=== PATIENT | male | born 1945 | race Hispanic/Latino ===

== ENCOUNTER 2017-01-20 06:47 | Day surgery (SDC) | payer MEDICARE, BC ==
[2017-01-17 09:09] VITALS: BMI 27.5
[2017-01-20 07:28] LABS: ADD MANUAL DIFF? NO
[2017-01-20 07:33] LABS: BASO # 0.05 K/mm3 (0.0-2.0); BASO % 0.8 % (0.0-3.0); EOS # 0.2 (0.0-0.7); EOS % 2.7 % (1.5-5.0); GRAN # 4.11 (1.4-6.5); GRAN % 69.2 % (50.0-68.0); HEMATOCRIT 42.3 % (42.0-52.0); LYMPH # 1.1 (1.2-3.4); LYMPH % 18.9 % (22.0-35.0); MEAN CELL VOLUME 87.4 fL (80.0-105.0); MEAN CORPUSCULAR HGB CONC 35.5 g/dl (31.0-37.0); MEAN PLATELET VOLUME 9.8 fl (7.0-11.0); MONO # 0.5 (0.1-0.6); MONO % 8.4 % (1.0-6.0); PLATELET COUNT 196 10^3/uL (120.0-450.0); RED CELL DISTRIBUTION WIDTH 12.4 % (11.5-14.5); WHITE BLOOD COUNT 5.9 10^3/ul (4.5-11.0)
[2017-01-20] MEDS ORDERED: Lidocaine 2% Inj (20ml) ONE (07:34)
[2017-01-20] MEDS ORDERED: Iodixanol 320 MG/ML 200 ML BOTTLE IV ONE (07:35)
[2017-01-20 07:44] LABS: CALCIUM 9.6 mg/dL (8.4-10.5); POTASSIUM 3.9 mmol/L (3.6-5.0)
[2017-01-20 07:47] LABS: INR 1.03 (0.93-1.08); PARTIAL THROMBOPLASTIN TIME 32.8 Seconds (23.7-30.8)
[2017-01-20] MEDS ORDERED: Midazolam 2 MG/2 ML VIAL ONE ×2 (08:09→08:30)
[2017-01-20] MEDS ORDERED: Sodium Chloride 0.9% 1,000 ML IV SCH (10:00)
--- NOTE | 2017-01-20 12:50 | CP.PCM.HP ---
History of Present Illness - History of Present Illness History of Present Illness: HPI: Patient is a 71yo male with history of diabetes mellitus type 2, gout, hypothyroidism and CAD that presented as an outpatient for cardiac catherization. Patient reported that he had a nuclear stress test done last week that revealed an abnormality and was subsequently scheduled for a cardiac catherization. He was admitted for post-cath observation. Nuclear stress test done on 01/13/17 revealed LVEF of 61% with equivocal SPECT mycocardial perfusion study, mildly reversible anterior defect that is suspicious of ischemia, normal gated wall motion of the left ventricle. Patient had 2 SHEA placed in the LAD and one SHEA placed in the obtuse marginal branch. Patient also has a critical lesion in the RCA for which he is scheduled to undergo another cardiac catherization next week with Dr. Cespedes. He denies chest pain, palpitations, SOB, abdominal pain, nausea, vomiting, fever, chills, cough, focal weakness, numbness , tingling. 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 Porter Present on Admission - Present on Admission Any Indicators Present on Admission: No Past Patient History - CARDIAC Hx Pacemaker: No - NEUROLOGICAL Hx Paralysis: No - HEMATOLOGICAL/ONCOLOGICAL Hx Blood Transfusions: No - MUSCULOSKELETAL/RHEUMATOLOGICAL Hx Musculoskeletal Disorders: Yes (DUE TO PLANNED ANESTHESIA) - PSYCHIATRIC Hx Emotional Abuse: No Hx Physical Abuse: No Hx Substance Use: No - SURGICAL HISTORY Hx Surgeries: Yes - ANESTHESIA Hx Anesthesia Reactions: No Hx Malignant Hyperthermia: No Meds Allergies/Adverse Reactions: Allergies Allergy/AdvReac Type Severity Reaction Status Date / Time No Known Allergies Allergy Verified 05/06/13 13:37 Physical Exam - Constitutional Appears: Well, Non-toxic, No Acute Distress - Head Exam Head Exam: ATRAUMATIC, NORMAL INSPECTION, NORMOCEPHALIC - Eye Exam Eye Exam: EOMI, PERRL - ENT Exam ENT Exam: Mucous Membranes Moist - Neck Exam Neck exam: Positive for: Normal Inspection. Negative for: Tenderness - Respiratory Exam Respiratory Exam: Clear to Auscultation Bilateral. absent: Rales, Rhonchi, Wheezes - Cardiovascular Exam Cardiovascular Exam: RRR, +S1, +S2. absent: Gallop, Rubs - GI/Abdominal Exam GI & Abdominal Exam: Soft. absent: Distended, Firm, Guarding, Rebound, Tenderness - Neurological Exam Neurological exam: Alert, Oriented x3 - Psychiatric Exam Psychiatric exam: Normal Affect, Normal Mood - Skin Skin Exam: Dry, Intact, Normal Color, Warm Results - Vital Signs Recent Vital Signs: Last Vital Signs Temp 98 F 01/20/17 12:00 Pulse 55 L 01/20/17 12:20 Resp 20 01/20/17 12:20 BP 117/79 01/20/17 12:20 Pulse Ox 97 01/20/17 07:25 - Labs Result Diagrams: 01/20/17 07:00 01/20/17 07:00 Labs: Laboratory Results - last 24 hr 01/20/17 01/20/17 01/20/17 07:00 07:00 07:00 WBC 5.9 RBC 4.84 Hgb 15.0 Hct 42.3 MCV 87.4 MCH 31.0 MCHC 35.5 RDW 12.4 Plt Count 196 MPV 9.8 Gran % 69.2 H Lymph % (Auto) 18.9 L [place] % (Auto) 8.4 H Eos % (Auto) 2.7 Baso % (Auto) 0.8 Gran # 4.11 Lymph # 1.1 L [place] # 0.5 Eos # 0.2 Baso # 0.05 PT 11.1 INR 1.03 APTT 32.8 H Sodium 140 Potassium 3.9 Chloride 104 Carbon Dioxide 26 Anion Gap 14 BUN 23 H Creatinine 1.5 H Est GFR ( Amer) 56 Est GFR (Non-Af Amer) 46 POC Glucose (mg/dL) Random Glucose 154 H Calcium 9.6 Blood Type Blood Type Confirm Antibody Screen BBK History Checked 01/20/17 01/20/17 01/20/17 07:00 07:20 10:43 WBC RBC Hgb Hct MCV MCH MCHC RDW Plt Count MPV Gran % Lymph % (Auto) [place] % (Auto) Eos % (Auto) Baso % (Auto) Gran # Lymph # [place] # Eos # Baso # PT INR APTT Sodium Potassium Chloride Carbon Dioxide Anion Gap BUN Creatinine Est GFR ( Amer) Est GFR (Non-Af Amer) POC Glucose (mg/dL) 131 H Random Glucose Calcium Blood Type B POSITIVE Blood Type Confirm B POSITIVE Antibody Screen Negative BBK History Checked No verified bt Assessment & Plan - Assessment and Plan (Free Text) Plan: 71yo male with history of CAD, DM2, hypothyroidism, gout s/p cardiac catherization admitted for post-cath observation 1. CAD -Patient is s/p 3 SHEA placement and is doing well post procedure -Continue with ASA, plavix, lipitor -Cardiology following - Dr. Cespedes 2. Acute kidney injury secondary to contrast nephropathy -Continue with IVF hydration @100cc/hr -Will continue to follow renal function closely 3. Diabetes type 2 -Fingersticks ACHS -Low dose ISS -Consistent carb diet 4. Hypothyroidism -Continue with synthroid Patient seen and case discussed with attending, Dr. Porter - Date & Time Date: 01/20/17 Time: 13:02
--- NOTE | 2017-01-20 13:20 | CARD ---
APPROVED REPORT EKG Measurement Heart [id number] [place] 176P14 [id number] <Conclusion> Sinus bradycardia Inferior infarct, age undetermined Abnormal ECG
--- NOTE | 2017-01-20 15:08 | CARDCATH ---
PROCEDURE DATE: 01/20/2017 HISTORY: The patient is a 71-year-old male who presents with an abnormal stress test. His cardiac r isk factors include hypertension, diabetes mellitus and hypercholesterolemia and a strong family hist ory for CAD. Because of his chest pain and abnormal stress test, cardiac catheterization was recommended. PROCEDURE: Left heart catheterization with coronary angiography, left ventriculogram, and PTCA and s tent of an LAD in circumflex artery. The right femoral artery was cannulated with a 6-[place] sheath. There were no complications. The findings on catheterization revealed a left ventricle that contracted normally. Estimated ejecti on fraction is 60%. The left main artery was unremarkable. The LAD in the proximal portion revealed an 80% stenoses that was a long lesion. The diagonal vessels were free of significant disease. The circumflex artery in the AV groove branch was unremarkable. The obtuse marginal branch which is a tortuous vessel was subtotally occluded and was a small vessel. The right coronary artery is selectively cannulized and found to be a dominant vessel. The RCA revea led intimal irregularities with 80% stenosis in the distal portion prior to the takeoff of the PDA. In addition, there is a 90% stenosis in the mid portion of the posterolateral branch. The patient was started on intravenous Angiomax. Under fluoroscopic guide, an EBU guider was placed in the ostium of the left main artery. An 0.014 A TW wire was placed in the LAD. A 3.0 mm x 15 mm drug-eluting stent was placed and deployed at 14 atmospheres of pressure. This was followed by another 3.0 stent just distal to the first stent. Post-dilatation was performed with a 3 .5 noncompliant balloon. The wire was then brought back and an [id number] wire was then placed across the subtotal occlu ded tortuous obtuse marginal branch. A 2.0 balloon was utilized to predilate the lesion. This was f ollowed by implantation of a 2.25 mm x 14 mm drug-eluting stent. Repeat coronary angiography reveale d an excellent result in the LAD as well as the obtuse marginal branch of the circumflex artery with no residual stenosis and HESHAM 3 flow. The patient tolerated the procedure well. Angio-Seal was used to close the femoral artery site. In summary, the procedure revealed triple vessel CAD. Successful percutaneous transluminal coronary angioplasty and stent of the LAD as well as the obtuse marginal branch with drug-eluting stents. Normal left ventricular function. Given these findings, the patient will need to remain on aspirin indefinitely and Plavix for at least 1 year and undergo a strict cardiac risk reduction program. We will bring the patient back in 1 week for PTCA and stent of 2 lesions in the RCA. Steve Cespedes MD cc: [id number] TT: 01/20/2017 15:07:20 rn
[2017-01-20] MEDS: Insulin Reg-LOW-Coverage SC SCH (17:59)
[2017-01-21] MEDS: Insulin Reg-LOW-Coverage SC SCH ×3 (02:58→12:32)
[2017-01-21 06:55] VITALS: O2SAT 96
[2017-01-21] MEDS ORDERED: Levothyroxine 25 MCG TAB PO SCH (07:30)
[2017-01-21 08:05] LABS: ADD MANUAL DIFF? NO
[2017-01-21 08:14] LABS: BASO # 0.02 K/mm3 (0.0-2.0); BASO % 0.3 % (0.0-3.0); EOS # 0.1 (0.0-0.7); EOS % 2.1 % (1.5-5.0); GRAN # 4.37 (1.4-6.5); GRAN % 72.1 % (50.0-68.0); HEMATOCRIT 41.9 % (42.0-52.0); LYMPH # 1.1 (1.2-3.4); LYMPH % 17.3 % (22.0-35.0); MEAN CELL VOLUME 88.2 fL (80.0-105.0); MEAN CORPUSCULAR HEMOGLOBIN 31.2 pg (25.0-35.0); MEAN CORPUSCULAR HGB CONC 35.3 g/dl (31.0-37.0); MEAN PLATELET VOLUME 9.6 fl (7.0-11.0); MONO # 0.5 (0.1-0.6); MONO % 8.2 % (1.0-6.0); PLATELET COUNT 174 10^3/uL (120.0-450.0); RED CELL DISTRIBUTION WIDTH 12.3 % (11.5-14.5); WHITE BLOOD COUNT 6.1 10^3/ul (4.5-11.0)
[2017-01-21 08:23] LABS: BLOOD UREA NITROGEN 22 mg/dL (7-21); CALCIUM 9.5 mg/dL (8.4-10.5); CARBON DIOXIDE 29 mmol/L (21-33); CHLORIDE 103 mmol/L (95-110); GFR AFRICAN-AMERICAN > 60; GLUCOSE,RANDOM 137 mg/dL (70-110); POTASSIUM 4.1 mmol/L (3.6-5.0); SODIUM 140 mmol/L (132-148)
--- NOTE | 2017-01-21 10:05 | CP.PCM.DIS ---
Provider - Provider Attending physician: Steve Cespedes MD Primary care physician: Juan Luis Porter MD Consults: Cardiology - Dr. Cespedes Time Spent in preparation of Discharge (in minutes): 30 Hospital Course - Lab Results Lab Results: Most Recent Lab Values WBC 6.1 10^3/ul (4.5-11.0) 01/21/17 07:50 RBC 4.75 10^6/uL (3.5-6.1) 01/21/17 07:50 Hgb 14.8 gm/dL (14.0-18.0) 01/21/17 07:50 Hct 41.9 % (42.0-52.0) L 01/21/17 07:50 MCV 88.2 fL (80.0-105.0) 01/21/17 07:50 MCH 31.2 pg (25.0-35.0) 01/21/17 07:50 MCHC 35.3 g/dl (31.0-37.0) 01/21/17 07:50 RDW 12.3 % (11.5-14.5) 01/21/17 07:50 Plt Count 174 10^3/uL (120.0-450.0) 01/21/17 07:50 MPV 9.6 fl (7.0-11.0) 01/21/17 07:50 Gran % 72.1 % (50.0-68.0) H 01/21/17 07:50 Lymph % (Auto) 17.3 % (22.0-35.0) L 01/21/17 07:50 [place] % (Auto) 8.2 % (1.0-6.0) H 01/21/17 07:50 Eos % (Auto) 2.1 % (1.5-5.0) 01/21/17 07:50 Baso % (Auto) 0.3 % (0.0-3.0) 01/21/17 07:50 Gran # 4.37 (1.4-6.5) 01/21/17 07:50 Lymph # 1.1 (1.2-3.4) L 01/21/17 07:50 [place] # 0.5 (0.1-0.6) 01/21/17 07:50 Eos # 0.1 (0.0-0.7) 01/21/17 07:50 Baso # 0.02 K/mm3 (0.0-2.0) 01/21/17 07:50 PT 11.1 Seconds (9.9-11.8) 01/20/17 07:00 INR 1.03 (0.93-1.08) 01/20/17 07:00 APTT 32.8 Seconds (23.7-30.8) H 01/20/17 07:00 Plt P2Y12 React Units 144 PRU (194-418) L 01/21/17 07:50 Sodium 140 mmol/L (132-148) 01/21/17 07:50 Potassium 4.1 mmol/L (3.6-5.0) 01/21/17 07:50 Chloride 103 mmol/L (95-110) 01/21/17 07:50 Carbon Dioxide 29 mmol/L (21-33) 01/21/17 07:50 Anion Gap 12 (10-20) 01/21/17 07:50 BUN 22 mg/dL (7-21) H 01/21/17 07:50 Creatinine 1.4 mg/dL (0.5-1.4) 01/21/17 07:50 Est GFR ( Amer) > 60 01/21/17 07:50 Est GFR (Non-Af Amer) 50 01/21/17 07:50 POC Glucose (mg/dL) 145 mg/dL (65-110) H 01/21/17 07:48 Random Glucose 137 mg/dL (70-110) H 01/21/17 07:50 Calcium 9.5 mg/dL (8.4-10.5) 01/21/17 07:50 Blood Type B POSITIVE 01/20/17 07:00 Blood Type Confirm B POSITIVE 01/20/17 07:20 Antibody Screen Negative 01/20/17 07:00 BBK History Checked No verified bt 01/20/17 07:00 - Date & Time of H&P Date of H&P: 01/20/17 Discharge Exam - Head Exam Head Exam: ATRAUMATIC, NORMAL INSPECTION, NORMOCEPHALIC - Eye Exam Eye Exam: EOMI, PERRL - ENT Exam ENT Exam: Mucous Membranes Moist - Respiratory Exam Respiratory Exam: Clear to PA & Lateral. absent: Rales, Rhonchi, Wheezes - Cardiovascular Exam Cardiovascular Exam: RRR, +S1, +S2. absent: Gallop, Rubs - GI/Abdominal Exam GI & Abdominal Exam: Normal Bowel Sounds, Soft. absent: Distended, Firm, Guarding, Rigid, Tenderness - Extremities Exam Extremities exam: normal inspection - Neurological Exam Neurological exam: Alert, CN II-XII Intact, Oriented x3 - Psychiatric Exam Psychiatric exam: Normal Affect, Normal Mood - Skin Skin Exam: Dry, Intact, Normal Color, Warm Discharge Plan - Discharge Medications Prescriptions: Atorvastatin [Lipitor] 40 mg PO DIN #30 tab Clopidogrel [Plavix] 75 mg PO DAILY #30 tab - Follow Up Plan Condition: GOOD Disposition: HOME/ ROUTINE Additional Instructions: 1. Follow up with your primary doctor, Dr. Porter within 1-2 weeks. 2. Follow up with your duplication specialist, Dr. Cespedes within 1-2 weeks. 3. Fill any medications prescribed to you and take as directed. 4. Discontinue taking your jentadueto medication for [address] Porter office to obtain trujenta medication for 2 weeks. 5. Proceed to the emergency room should your condition worsen. Referrals: Juan Luis Porter MD [Primary Care Provider] -
[2017-01-21 11:50] VITALS: BP 120/79; RESP 20; TEMP 98.6
--- NOTE | 2017-01-21 14:06 | PN ---
DATE: 01/21/2017 The patient is chest pain free. PHYSICAL EXAMINATION: VITAL SIGNS: Stable. NECK: Negative JVD. LUNGS: Without rales. HEART: Reveals S1, S2. EXTREMITIES: Without edema. LABORATORIES: Reviewed and found to be unremarkable. IMPRESSION: 1. Status post percutaneous transluminal coronary angioplasty and stent of the left anterior descend ing and circumflex artery with drug-eluting stents. 2. Three-vessel coronary artery disease. 3. Hypercholesterolemia. 4. Angina. Given these findings, the patient is stable for discharge. His renal function has improved with aggr essive hydration. The patient is scheduled for discharge today. We will bring him back in 1 week for PTCA and stent of the RCA. Steve Cespedes MD cc: [id number] TT: 01/21/2017 14:06:07 Confirmation # [id number] Dictation # [id number] tn
[2017-01-21 15:13] VITALS: PULSE 74
--- NOTE | 2017-01-21 22:34 | CARD ---
APPROVED REPORT EKG Measurement Heart [id number] [place] 170P9 [id number] <Conclusion> Normal sinus rhythm with sinus arrhythmia Inferior infarct, age undetermined Abnormal ECG
== END 2017-01-21 16:21 | disposition home or self-care (01) ==
LOC: CATH 06:47 → 2RSO 10:05 → CATH 01-21 16:21
PROVIDERS: ATTEND Internal Medicine Cardiovascular Disease
DX: I25.10 Atherosclerotic heart disease of native coronary artery without angina pectoris (principal); I10 Essential (primary) hypertension; E78.00 Pure hypercholesterolemia, unspecified; E11.9 Type 2 diabetes mellitus without complications; E03.9 Hypothyroidism, unspecified; M10.9 Gout, unspecified; N17.8 Other acute kidney failure; N14.1 Nephropathy induced by other drugs, medicaments and biological substances; T50.8X5A Adverse effect of diagnostic agents, initial encounter; Z82.49 Family history of ischemic heart disease and other diseases of the circulatory system
CPT/HCPCS: 36415 ×2; 80048 ×2; 82139; 82948 ×2; 85025 ×2; 85610; 85730; 86850; 86900; 93005 ×2; 93458; 99152; 99153; C1725 ×2; C1760; C1769 ×3; C1874 ×3; C1887; C2629; C9600; C9601; J0583; J1644; J2250; J3010; J7030; J7040

== ENCOUNTER 2017-01-30 06:24 | Day surgery (SDC) | payer MEDICARE, BC ==
[2017-01-28 08:01] VITALS: BMI 26.4
[2017-01-30] MEDS ORDERED: Lidocaine 2% Inj (20ml) ONE (06:37)
[2017-01-30] MEDS ORDERED: Iohexol 350mgl/ml 50 ML ONE (06:37)
[2017-01-30] MEDS ORDERED: Phenylephrine 10 mg/ml Inj ONE (06:37)
[2017-01-30] MEDS ORDERED: Nitroglycerin 50mg in D5W 50 MG/250 ML BOTTLE IV ONE (06:38)
[2017-01-30] MEDS ORDERED: Iodixanol 320 MG/ML 100 ML BOTTLE IV ONE (06:38)
[2017-01-30] MEDS ORDERED: Iodixanol 320 MG/ML 200 ML BOTTLE IV ONE (06:38)
[2017-01-30 06:49] LABS: ADD MANUAL DIFF? NO
[2017-01-30 06:55] LABS: BASO # 0.07 K/mm3 (0.0-2.0); BASO % 1.4 % (0.0-3.0); EOS # 0.2 (0.0-0.7); EOS % 4.5 % (1.5-5.0); GRAN # 3.37 (1.4-6.5); GRAN % 65.9 % (50.0-68.0); HEMATOCRIT 38.9 % (42.0-52.0); LYMPH % 20.2 % (22.0-35.0); MEAN CORPUSCULAR HEMOGLOBIN 31.1 pg (25.0-35.0); MEAN CORPUSCULAR HGB CONC 35.7 g/dl (31.0-37.0); MEAN PLATELET VOLUME 9.6 fl (7.0-11.0); MONO # 0.4 (0.1-0.6); PLATELET COUNT 208 10^3/uL (120.0-450.0); RED CELL DISTRIBUTION WIDTH 12.3 % (11.5-14.5); WHITE BLOOD COUNT 5.1 10^3/ul (4.5-11.0)
[2017-01-30 07:02] LABS: INR 1.03 (0.93-1.08); PARTIAL THROMBOPLASTIN TIME 34.1 Seconds (23.7-30.8)
[2017-01-30 07:08] LABS: BLOOD UREA NITROGEN 24 mg/dL (7-21); CALCIUM 9.3 mg/dL (8.4-10.5); CARBON DIOXIDE 25 mmol/L (21-33); CHLORIDE 107 mmol/L (98-107); CHOLESTEROL 55 mg/dL (130-200); GFR AFRICAN-AMERICAN > 60; GLUCOSE,RANDOM 122 mg/dL (70-110); POTASSIUM 3.9 mmol/L (3.6-5.0); SODIUM 141 mmol/L (132-148)
[2017-01-30] MEDS ORDERED: Midazolam 2 MG/2 ML VIAL ONE ×2 (07:21→08:08)
[2017-01-30] MEDS ORDERED: Sodium Chloride 0.9% 1,000 ML IV SCH (09:45)
--- NOTE | 2017-01-30 10:25 | CARDCATH ---
PROCEDURE DATE: 01/30/2017 HISTORY OF PRESENT ILLNESS: The patient is a 71-year-old male with documented multivessel CAD who pr esents for PTCA and stent of the RCA. PROCEDURE: Left heart catheterization with coronary arteriography and PTCA and stent of an RCA. The left femoral artery was cannulated with a 6-[place] sheath. There were no complications. The findings on catheterization revealed a right dominant circulation. The RCA was diffusely diseased throughout its course with a 70%-80% stenosis at the crux of the RCA a s well as a 90% stenosis in the second posterolateral branch with a long critical lesion in the first posterolateral branch. The left main artery was unremarkable. The stents in the LAD and circumflex artery that were placed last week were patent. The patient was started on intravenous Angiomax. Under fluoroscopic guide, the guiding catheter was placed in the ostium of the RCA. An 0.014 ATW wir e was placed in the RCA past the multiple critical lesions. A 2.0 balloon was utilized to predilate the lesion. A 2.25 mm x 12 mm drug-eluting stent was placed and deployed at 12 atmospheres of pressure in the pos terolateral branch. A 2.75 mm x 8 mm drug-eluting stent was placed and deployed at 14 atmospheres of pressure in the crux of the RCA. Repeat coronary angiography revealed an excellent result with no residual stenosis and HESHAM 3 flow. Angio-Seal was used to close the femoral artery site. SUMMARY: 1. The procedure was successful percutaneous transluminal coronary angioplasty and stent of multiple lesions in the right coronary artery. 2. Coronary arteriography revealed patent stents in the circumflex artery and left anterior descendi ng. 3. Triple vessel disease noted. 4. Preserved left ventricular function. Given these findings, the patient will need to remain on aspirin indefinitely and Effient for at leas t 1 year. The patient was found to be ALLERGIC TO PLAVIX. Steve Cespedes MD cc: [phone] TT: 01/30/2017 10:25:24 en
[2017-01-30 10:47] LABS: ADD MANUAL DIFF? NO
[2017-01-30 10:55] LABS: BASO # 0.06 K/mm3 (0.0-2.0); BASO % 1.3 % (0.0-3.0); EOS # 0.2 (0.0-0.7); EOS % 3.9 % (1.5-5.0); GRAN # 3.17 (1.4-6.5); GRAN % 69.5 % (50.0-68.0); HEMATOCRIT 37.1 % (42.0-52.0); LYMPH # 0.8 (1.2-3.4); LYMPH % 16.7 % (22.0-35.0); MEAN CELL VOLUME 87.7 fL (80.0-105.0); MEAN CORPUSCULAR HGB CONC 35.3 g/dl (31.0-37.0); MEAN PLATELET VOLUME 9.6 fl (7.0-11.0); MONO # 0.4 (0.1-0.6); MONO % 8.6 % (1.0-6.0); PLATELET COUNT 179 10^3/uL (120.0-450.0); RED CELL DISTRIBUTION WIDTH 12.4 % (11.5-14.5); WHITE BLOOD COUNT 4.6 10^3/ul (4.5-11.0)
--- NOTE | 2017-01-30 14:50 | CP.PCM.HP ---
History of Present Illness - History of Present Illness History of Present Illness: Internal Medicine H&P for Dr. Porter/Dr. Sewell service CC: S/p cardiac cath HPI: This is a 71 yo M with PMH of DM-II, gout, hypothyroidism, and CAD s/p stenting 1 week prior who presents s/p scheduled outpatient cardiac cath for overnight observation. Patient is s/p stenting of the LAD and circumflex arteries last week, and is now s/p 2x drug-eluting stents in the RCA. At time of exam on the floors, patient is resting comfortably in bed, no acute complaints. Some tenderness at the site of canulation, but denies chest pain, shortness of breath, nausea/emesis. PMH: DM2, Gout, Hypothyroidism, CAD PSH: Vasectomy (>30yrs ago), cardiac cath s/p SHEA placement FHx: Brain hemorrhage (Father) SHx: Denies tobacco/alcohol/illicits PMD: Dr. Porter Present on Admission - Present on Admission Any Indicators Present on Admission: No History of DVT/PE: No History of Uncontrolled Diabetes: No Review of Systems - Constitutional Constitutional: absent: Chills, Fever, Weakness - EENT Eyes: absent: Blurred Vision, Change in Vision, Loss of Vision Ears: absent: Disequilibrium, Dizziness Nose/Mouth/Throat: absent: Sore Throat, Neck Pain - Cardiovascular Cardiovascular: absent: Chest Pain, Dyspnea, Lightheadedness, Syncope - Respiratory Respiratory: absent: Cough, Dyspnea, Hemoptysis - Gastrointestinal Gastrointestinal: absent: Abdominal Pain, Constipation, Diarrhea, Nausea, Vomiting - Genitourinary Genitourinary: absent: Difficulty Urinating, Dysuria, Flank Pain, Hematuria - Musculoskeletal Musculoskeletal: absent: Neck Pain, Numbness - Integumentary Integumentary: absent: Bleeding Lesions, Pruritus, Rash - Neurological Neurological: absent: Numbness, Focal Weakness, Loss of Vision, Syncope, Weakness, Other Visual Disturbances - Psychiatric Psychiatric: absent: Anxiety - Endocrine Endocrine: absent: Fatigue, Palpitations Past Patient History - CARDIAC Hx Pacemaker: No - NEUROLOGICAL Hx Paralysis: No - HEMATOLOGICAL/ONCOLOGICAL Hx Blood Transfusions: No - MUSCULOSKELETAL/RHEUMATOLOGICAL Hx Musculoskeletal Disorders: Yes - PSYCHIATRIC Hx Emotional Abuse: No Hx Physical Abuse: No Hx Substance Use: No - SURGICAL HISTORY Hx Surgeries: Yes - ANESTHESIA Hx Anesthesia Reactions: No Hx Malignant Hyperthermia: No Meds Allergies/Adverse Reactions: Allergies Allergy/AdvReac Type Severity Reaction Status Date / Time clopidogrel [From Plavix] Allergy RASH Verified 01/30/17 07:55 Physical Exam - Constitutional Appears: Non-toxic, No Acute Distress - Head Exam Head Exam: ATRAUMATIC, NORMAL INSPECTION, NORMOCEPHALIC - Eye Exam Eye Exam: EOMI, Normal appearance. absent: Conjunctival injection, Scleral icterus Pupil Exam: absent: Irregular, Unequal - ENT Exam ENT Exam: Mucous Membranes Moist - Neck Exam Neck exam: Positive for: Full Rom, Normal Inspection - Respiratory Exam Respiratory Exam: Clear to Auscultation Bilateral, NORMAL BREATHING PATTERN. absent: Accessory Muscle Use, Chest Wall Tenderness, Decreased Breath Sounds, Rales, Rhonchi, Wheezes - Cardiovascular Exam Cardiovascular Exam: REGULAR RHYTHM, RRR, +S1, +S2. absent: Bradycardia, Tachycardia - GI/Abdominal Exam GI & Abdominal Exam: Normal Bowel Sounds, Soft. absent: Distended, Firm, Rigid , Tenderness - Extremities Exam Extremities exam: Positive for: normal inspection, pedal pulses present (+2 dosalis pedis and posterior tibials bilaterally, brisk L popliteal pulse). Negative for: calf tenderness, pedal edema, tenderness Additional comments: mild tenderness at site of L groin (Cath access site), no active bleeding or oozing through pressure bandage, no surrounding tenderness/erythema/edema - Neurological Exam Neurological exam: Alert, Oriented x3 - Psychiatric Exam Psychiatric exam: Normal Affect, Normal Mood - Skin Skin Exam: Dry, Intact (except for canulation site as described in extremities exam), Normal Color, Warm Results - Vital Signs Recent Vital Signs: Last Vital Signs Temp 97.3 F L 01/30/17 12:02 Pulse 55 L 01/30/17 13:14 Resp 20 01/30/17 13:14 BP 122/70 01/30/17 13:14 Pulse Ox 99 01/30/17 06:45 - Labs Result Diagrams: 01/30/17 10:45 01/30/17 06:45 Labs: Laboratory Results - last 24 hr 01/30/17 01/30/17 01/30/17 06:45 06:45 06:45 WBC 5.1 RBC 4.47 Hgb 13.9 L Hct 38.9 L MCV 87.0 MCH 31.1 MCHC 35.7 RDW 12.3 Plt Count 208 MPV 9.6 Gran % 65.9 Lymph % (Auto) 20.2 L [place] % (Auto) 8.0 H Eos % (Auto) 4.5 Baso % (Auto) 1.4 Gran # 3.37 Lymph # 1.0 L [place] # 0.4 Eos # 0.2 Baso # 0.07 PT 11.1 INR 1.03 APTT 34.1 H Sodium 141 Potassium 3.9 Chloride 107 Carbon Dioxide 25 Anion Gap 13 BUN 24 H Creatinine 1.4 Est GFR ( Amer) > 60 Est GFR (Non-Af Amer) 50 Random Glucose 122 H Calcium 9.3 Triglycerides 85 Cholesterol 55 L LDL Cholesterol Direct < 30 HDL Cholesterol 27 L Blood Type Antibody Screen BBK History Checked 01/30/17 01/30/17 06:45 10:45 WBC 4.6 RBC 4.23 Hgb 13.1 L Hct 37.1 L MCV 87.7 MCH 31.0 MCHC 35.3 RDW 12.4 Plt Count 179 MPV 9.6 Gran % 69.5 H Lymph % (Auto) 16.7 L [place] % (Auto) 8.6 H Eos % (Auto) 3.9 Baso % (Auto) 1.3 Gran # 3.17 Lymph # 0.8 L [place] # 0.4 Eos # 0.2 Baso # 0.06 PT INR APTT Sodium Potassium Chloride Carbon Dioxide Anion Gap BUN Creatinine Est GFR ( Amer) Est GFR (Non-Af Amer) Random Glucose Calcium Triglycerides Cholesterol LDL Cholesterol Direct HDL Cholesterol Blood Type B POSITIVE Antibody Screen Negative BBK History Checked Patient has bt Assessment & Plan - Assessment and Plan (Free Text) Assessment: This is a 71 yo M with PMH of CAD s/p stenting, DM-II, hypothyroidism , and gout who presents s/p cardiac catherization for stenting of RCA, now here for post-cath obs. Plan: 1) CAD s/p stenting -S/p stenting of LAD and circumflex arteries 1 week prior, now s/p 2x stents of the RCA -Continue with ASA, effient, lipitor -Cardiology (Dr. Cespedes) following, appreciate all recs -f/u EKG in AM -f/u AM labs -Pulse checks as per cardio 2) Elevated Cr s/p contrast dye exposure -Cr 1.4, was 1.4 on discharge 1 week prior -IVF hydration @100cc/hr -f/u Cr on AM labs tomorrow AM 3) DM-II -Low-ISS + Fingersticks ACHS -Consistent carb diet -Hold home linagliptin 4) Hypothyroidism -Continue with synthroid Dispo: Tele s/p cardiac cath, likely d/c tomorrow FEN: Heart-healthy consistent carb Access: Peripheral IV Consults: Cardio Ppx: Protonix for GI, SCDs for DVT Patient seen, reviewed, and discussed with attending, Dr. Porter. - Date & Time Date: 01/30/17 Time: 09:45 Decision To Admit - Pt Status Changed To: Hospital Disposition Of: Extended Recovery/Post Procedure - . Bed Request Type: Telemetry
[2017-01-30] MEDS: Sodium Chloride 0.9% 1,000 ML IV SCH (16:47)
--- NOTE | 2017-01-30 23:42 | CARD ---
APPROVED REPORT EKG Measurement Heart [id number] [place] 174P22 [id number] <Conclusion> Marked sinus bradycardia Inferior infarct, age undetermined Abnormal ECG
[2017-01-31] MEDS: Sodium Chloride 0.9% 1,000 ML IV SCH (02:42)
[2017-01-31 06:10] VITALS: PULSE 58; O2SAT 98
[2017-01-31 07:27] LABS: ADD MANUAL DIFF? NO
[2017-01-31 07:29] LABS: BASO # 0.03 K/mm3 (0.0-2.0); BASO % 0.6 % (0.0-3.0); EOS # 0.2 (0.0-0.7); EOS % 3.4 % (1.5-5.0); GRAN # 4.03 (1.4-6.5); GRAN % 75.4 % (50.0-68.0); LYMPH # 0.8 (1.2-3.4); LYMPH % 14.8 % (22.0-35.0); MEAN CELL VOLUME 87.6 fL (80.0-105.0); MEAN CORPUSCULAR HEMOGLOBIN 31.1 pg (25.0-35.0); MEAN CORPUSCULAR HGB CONC 35.5 g/dl (31.0-37.0); MEAN PLATELET VOLUME 9.9 fl (7.0-11.0); MONO # 0.3 (0.1-0.6); MONO % 5.8 % (1.0-6.0); PLATELET COUNT 179 10^3/uL (120.0-450.0); RED CELL DISTRIBUTION WIDTH 12.3 % (11.5-14.5); WHITE BLOOD COUNT 5.3 10^3/ul (4.5-11.0)
[2017-01-31] MEDS ORDERED: Levothyroxine 25 MCG TAB PO SCH ×2 (07:30→10:00)
[2017-01-31 07:43] LABS: BLOOD UREA NITROGEN 20 mg/dL (7-21); CARBON DIOXIDE 25 mmol/L (21-33); CHLORIDE 109 mmol/L (95-110); GFR AFRICAN-AMERICAN > 60; GLUCOSE,RANDOM 112 mg/dL (70-110); MAGNESIUM 1.8 mg/dL (1.7-2.2); PHOSPHOROUS 3.3 mg/dL (2.5-4.5); POTASSIUM 3.9 mmol/L (3.6-5.0); SODIUM 141 mmol/L (132-148)
--- NOTE | 2017-01-31 10:26 | PN ---
DATE: 01/30/2017 The patient is ambulating without symptoms. PHYSICAL EXAMINATION: VITAL SIGNS: Blood pressure is 115/67, heart rate is in the 60s. NECK: Negative JVD. LUNGS: Without rales. HEART: Reveals S1, S2. EXTREMITIES: Without edema. LABORATORIES: Creatinine is 1.4, potassium is 3.9. IMPRESSION: 1. Stable post percutaneous transluminal coronary angioplasty and stent of multivessels. 2. Coronary artery disease. 3. Hypercholesterolemia. 4. ALLERGY TO PLAVIX. PLAN: Given these findings, the patient can be discharged. Followup instructions were given to the patient. The patient will be on Effient for at least 1 year. Steve Cespedes MD cc: [id number] TT: 01/31/2017 10:25:49 Confirmation # [id number] Dictation # [id number] [place]
[2017-01-31] MEDS ORDERED: DiphenhydrAMINE 50 mg/ml Inj IVP STA (10:36)
[2017-01-31] MEDS ORDERED: DiphenhydrAMINE 50 mg/ml Inj ONE (11:12)
[2017-01-31 11:55] VITALS: BP 126/77; RESP 18; TEMP 98.3
--- NOTE | 2017-01-31 17:54 | CP.PCM.DIS ---
Provider - Provider Date of Admission: 01/30/17 Attending physician: Juan Luis Porter MD Primary care physician: Juan Luis Porter MD Consults: Cardio: Coy Time Spent in preparation of Discharge (in minutes): 35 Diagnosis - Discharge Diagnosis (1) S/P cardiac cath Status: Acute Priority: High (2) S/P coronary artery stent placement Status: Acute Priority: High (3) Hyperlipemia Status: Chronic Priority: Medium (4) Diabetes Status: Chronic Priority: Medium (5) Hypothyroid Status: Chronic Priority: Medium Hospital Course - Lab Results Lab Results: Most Recent Lab Values WBC 5.3 10^3/ul (4.5-11.0) 01/31/17 05:30 RBC 4.34 10^6/uL (3.5-6.1) 01/31/17 05:30 Hgb 13.5 gm/dL (14.0-18.0) L 01/31/17 05:30 Hct 38.0 % (42.0-52.0) L 01/31/17 05:30 MCV 87.6 fL (80.0-105.0) 01/31/17 05:30 MCH 31.1 pg (25.0-35.0) 01/31/17 05:30 MCHC 35.5 g/dl (31.0-37.0) 01/31/17 05:30 RDW 12.3 % (11.5-14.5) 01/31/17 05:30 Plt Count 179 10^3/uL (120.0-450.0) 01/31/17 05:30 MPV 9.9 fl (7.0-11.0) 01/31/17 05:30 Gran % 75.4 % (50.0-68.0) H 01/31/17 05:30 Lymph % (Auto) 14.8 % (22.0-35.0) L 01/31/17 05:30 Guthrie % (Auto) 5.8 % (1.0-6.0) 01/31/17 05:30 Eos % (Auto) 3.4 % (1.5-5.0) 01/31/17 05:30 Baso % (Auto) 0.6 % (0.0-3.0) 01/31/17 05:30 Gran # 4.03 (1.4-6.5) 01/31/17 05:30 Lymph # 0.8 (1.2-3.4) L 01/31/17 05:30 Guthrie # 0.3 (0.1-0.6) 01/31/17 05:30 Eos # 0.2 (0.0-0.7) 01/31/17 05:30 Baso # 0.03 K/mm3 (0.0-2.0) 01/31/17 05:30 PT 11.1 Seconds (9.9-11.8) 01/30/17 06:45 INR 1.03 (0.93-1.08) 01/30/17 06:45 APTT 34.1 Seconds (23.7-30.8) H 01/30/17 06:45 Sodium 141 mmol/L (132-148) 01/31/17 05:30 Potassium 3.9 mmol/L (3.6-5.0) 01/31/17 05:30 Chloride 109 mmol/L (95-110) 01/31/17 05:30 Carbon Dioxide 25 mmol/L (21-33) 01/31/17 05:30 Anion Gap 11 (10-20) 01/31/17 05:30 BUN 20 mg/dL (7-21) 01/31/17 05:30 Creatinine 1.4 mg/dL (0.5-1.4) 01/31/17 05:30 Est GFR ( Amer) > 60 01/31/17 05:30 Est GFR (Non-Af Amer) 50 01/31/17 05:30 POC Glucose (mg/dL) 106 mg/dL (65-110) 01/31/17 11:16 Random Glucose 112 mg/dL (70-110) H 01/31/17 05:30 Calcium 9.0 mg/dL (8.4-10.5) 01/31/17 05:30 Phosphorus 3.3 mg/dL (2.5-4.5) 01/31/17 05:30 Magnesium 1.8 mg/dL (1.7-2.2) 01/31/17 05:30 Triglycerides 85 mg/dL (35-160) 01/30/17 06:45 Cholesterol 55 mg/dL (130-200) L 06/22/17 06:45 LDL Cholesterol Direct < 30 mg/dL (0-129) 01/30/17 06:45 HDL Cholesterol 27 mg/dL (29-60) L 01/30/17 06:45 Blood Type B POSITIVE 01/30/17 06:45 Antibody Screen Negative 01/30/17 06:45 BBK History Checked Patient has bt 01/30/17 06:45 - Hospital Course Hospital Course: This is a 71 yo M with PMH of DM-II, gout, hypothyroidism, and CAD s/ p stenting 1 week prior who presents s/p scheduled outpatient cardiac cath for overnight observation. Patient is s/p stenting of the LAD and circumflex arteries last week, and is now s/p 2x drug-eluting stents in the RCA. Overnight , he developed a pruritic rash along his back and bilateral medial thighs, which is identical to the rash he experienced overnight after his first cath, as per patient. His breathing/airway remained unaffected, and patient believes that the detergent used in the hospital sheets may be causing the reaction. Otherwise, no acute events overnight. As per Cardio, patient is cleared for discharge, and the patient will need to follow up as an outpt, and remain on Effient for at least 1 year. Patient was also instructed to hold off on Metformin use for at 3 days (including today), and to take Lipitor 40mg and daily aspirin 81mg. Scripts for Effient and Plavix were electronically transmitted to his preferred pharmacy. He was also instructed to follow up with his PMD within 1 week of discharge. Patient expressed understanding and agreement with instructions. All questions were answered to his satisfaction, and patient was then discharged. Patient seen, reviewed, and discussed with attending, Dr. Sewell. Discharge Exam - Head Exam Head Exam: ATRAUMATIC, NORMAL INSPECTION, NORMOCEPHALIC - Additional Findings Additional findings: - Constitutional Appears: Non-toxic, No Acute Distress, Resting comfortably - Head Exam Head Exam: ATRAUMATIC, NORMAL INSPECTION, NORMOCEPHALIC - Eye Exam Eye Exam: EOMI, Normal appearance. absent: Conjunctival injection, Scleral icterus Pupil Exam: absent: Irregular, Unequal - ENT Exam ENT Exam: Mucous Membranes Moist, Airway patent - Neck Exam Neck exam: Positive for: Full Rom, Normal Inspection - Respiratory Exam Respiratory Exam: Clear to Auscultation Bilateral, NORMAL BREATHING PATTERN. absent: Accessory Muscle Use, Chest Wall Tenderness, Decreased Breath Sounds, Rales, Rhonchi, Wheezes, Stridor - Cardiovascular Exam Cardiovascular Exam: REGULAR RHYTHM, RRR, +S1, +S2. absent: Bradycardia, Tachycardia - GI/Abdominal Exam GI & Abdominal Exam: Normal Bowel Sounds, Soft. absent: Distended, Firm, Rigid , Tenderness - Extremities Exam Extremities exam: Positive for: normal inspection, pedal pulses present (+2 dosalis pedis and posterior tibials bilaterally, brisk L popliteal pulse), healed L groin femoral access site. Negative for: calf tenderness, pedal edema , tenderness, edema/erythemea/tenderness at or immediately around L-groin femoral canulation site - Neurological Exam Neurological exam: Alert, Oriented x3 - Psychiatric Exam Psychiatric exam: Normal Affect, Normal Mood - Skin Skin Exam: Intact (except for canulation site as described in extremities exam) , Diffuse hives and erythema (predominantly along back and bilateral inner thigh ) with concurrent pruritis Discharge Plan - Discharge Medications Prescriptions: Atorvastatin [Lipitor] 40 mg PO DIN #30 tab Prasugrel [Effient] 10 mg PO DAILY #30 tab - Follow Up Plan Condition: GOOD Disposition: HOME/ ROUTINE Instructions: Coronary Artery Disease (DC), Right Heart Catheterization (DC), Low Fat Diet (DC), Heart Healthy Diet (DC) Additional Instructions: Follow up with PMD within 1 week outpatient. Follow up with Dr. Cespedes (hospital pharmacy director) within 3-4 weeks. (Office # = [phone]) Continue Effient daily regimen. Take Aspirin 81mg daily. If chest pain develops or symptoms return, seek medical attention IMMEDIATELY. Referrals: Juan Luis Porter MD [Primary Care Provider] -
--- NOTE | 2017-01-31 17:55 | CARD ---
APPROVED REPORT EKG Measurement Heart [id number] <Conclusion> Sinus bradycardia Inferior infarct, age undetermined Abnormal ECG
== END 2017-01-31 12:40 | disposition home or self-care (01) ==
LOC: CATH 06:24 → 2RSO 09:30 → CATH 01-31 12:40
PROVIDERS: ATTEND Internal Medicine
DX: I25.10 Atherosclerotic heart disease of native coronary artery without angina pectoris (principal); E78.00 Pure hypercholesterolemia, unspecified; Z88.8 Allergy status to other drugs, medicaments and biological substances; Z95.5 Presence of coronary angioplasty implant and graft; E11.9 Type 2 diabetes mellitus without complications; M10.9 Gout, unspecified; E03.9 Hypothyroidism, unspecified; Z98.52 Vasectomy status; Z82.3 Family history of stroke
CPT/HCPCS: 36415 ×2; 80048 ×2; 80061; 82948 ×2; 83735; 84100; 85025 ×2; 85610; 85730; 86850; 86900; 93005 ×2; 93454; C1725; C1760; C1769 ×2; C1874 ×3; C1887; C2629; C9600; C9601; J0583; J1200; J1644; J2250; J3010; J7040 ×2; Q9967